=== PATIENT | male | born 1980 | race Two or more races ===

== ENCOUNTER 2018-11-19 18:36 | Emergency (ER) | payer BC ==
[2018-11-19 19:04] LABS: ABS Lymphocytes 0.5 10^3/ul (1.0-4.8); ABS Monocytes 0.5 10^3/ul (0-0.8); ABS Neutrophils 10.9 10^3/ul (1.5-7.7); Hematocrit 51 % (42-52); Hemoglobin 17.1 g/dL (14.0-18.0); Lymphocyte % 4.4 %; Mean Corpuscular HGB Conc 34 g/dL (31-36); Mean Corpuscular Hemoglobin 31 pg (27-31); Mean Corpuscular Volume 91 fL (80-94); Mean Platelet Volume 9.4 fL (7.4-10.4); Nucleated Red Blood Cells % 0.1; Platelet Count 203 10^3/uL (150-450); Red Cell Distribution Width 13 % (10.5-15)
[2018-11-19 19:13] LABS: Activated Partial Thrombo Time 34.8 seconds (26.0-38.0); INR 1.06 (0.82-1.09)
--- NOTE | 2018-11-19 19:16 | ED ---
Complex/Multi-Sys Presentation - HPI Summary HPI Summary: This patient is a 38 year old M [place] [facility] [place] to [place] new onset of A-fib found on the EKG taken at prior to arrival. Patient originally went to due to nasal drip and upper abdominal pain. Pain rated 3/10 in severity. He report current mild SOB. Patient denies chest pain and palpitations. Denies cardiac history. Gio FMHx of cardiac events. PMHx of severe asthma, appendectomy, and hernia repairs. - History Of Current Complaint Chief Complaint: EDDysrhythmPalp Time Seen by Provider: 11/19/18 18:51 Hx Obtained From: Patient Onset/Duration: Lasting Hours Location: Pain At: - upper abdomen Associated Signs And Symptoms: Positive: SOB. Negative: Chest Pain, Palpitations - Allergies/Home Medications Allergies/Adverse Reactions: Allergies Allergy/AdvReac Type Severity Reaction Status Date / Time No Known Allergies Allergy Verified 11/19/18 22:06 Home Medications: Home Medications Simethicone [Gas-X Extra Strength] 125 mg PO TID PRN 11/19/18 [History Confirmed 11/19/18] PMH/Surg Hx/FS Hx/Imm Hx Cardiovascular History: Denies: Hx Atrial Fibrillation Respiratory History: Reports: Hx Asthma - Surgical History Surgery Procedure, Year, and Place: appendectomy, hernia repair Infectious Disease History: No Infectious Disease History: Denies: Traveled Outside the [place] in Last 30 Days - Family History Known Family History: Negative: Cardiac Disease - Social History Alcohol Use: Occasionally Hx Substance Use: No Substance Use Type: Reports: None Hx Tobacco Use: No Smoking Status (MU): Never Smoked Tobacco Review of Systems Positive: Nasal Discharge Negative: Palpitations, Chest Pain Positive: Shortness Of Breath Positive: Abdominal Pain All Other Systems Reviewed And Are Negative: Yes Physical Exam - Summary Physical Exam Summary: GENERAL: Patient is a well-developed and nourished M who is lying comfortable in the stretcher. Patient is not in any acute respiratory distress. HEAD AND FACE: Normocephalic EYES: PERRLA, EOMI x 2. EARS: Hearing grossly intact. MOUTH: Oropharynx within normal limits. NECK: Supple, trachea is midline, no adenopathy, no JVD, no carotid bruit. CHEST: Symmetric, no tenderness at palpation LUNGS: Clear to auscultation bilaterally. No wheezing or crackles. CVS: Irregularly irregular mildly tachycardic, S1 and S2 present, no murmurs or gallops appreciated. ABDOMEN: Soft, Tender to palpation in upper abdomen. Bowel sounds are normal. No abnormal abdominal pulsations. EXTREMITIES: Full ROM in all major joints, no edema, no cyanosis or clubbing. NEURO: Alert and oriented x 3. No acute neurological deficits. Speech is normal and follows commands. SKIN: Dry and warm Triage Information Reviewed: Yes Vital Signs On Initial Exam: Initial Vitals Temp Pulse Resp BP Pulse Ox 97.8 F 101 18 141/106 97 11/19/18 18:39 11/19/18 18:39 11/19/18 18:39 11/19/18 18:39 11/19/18 18:39 Vital Signs Reviewed: Yes Diagnostics - Vital Signs Vital Signs Temp Pulse Resp BP Pulse Ox 11/19/18 18:39 97.8 F 101 18 141/106 97 - Laboratory Lab Results: Lab Results 11/19/18 Range/Units 18:57 WBC 12.0 H (3.5-10.8) 10^3/uL RBC 5.60 H (4.18-5.48) 10^6 /uL Hgb 17.1 (14.0-18.0) g/dL Hct 51 (42-52) % MCV 91 (80-94) fL MCH 31 (27-31) pg MCHC 34 (31-36) g/dL RDW 13 (10.5-15) % Plt Count 203 (150-450) 10^3/uL MPV 9.4 (7.4-10.4) fL Neut % (Auto) 91.1 % Lymph % (Auto) 4.4 % [place] % (Auto) 4.2 % Eos % (Auto) 0.0 % Baso % (Auto) 0.3 % Absolute Neuts (auto) 10.9 H (1.5-7.7) 10^3/ul Absolute Lymphs (auto) 0.5 L (1.0-4.8) 10^3/ul Absolute Monos (auto) 0.5 (0-0.8) 10^3/ul Absolute Eos (auto) 0.0 (0-0.6) 10^3/ul Absolute Basos (auto) 0.0 (0-0.2) 10^3/ul Absolute Nucleated RBC 0.0 10^3/ul Nucleated RBC % 0.1 Result Diagrams: 11/19/18 18:57 11/19/18 18:57 Lab Statement: Any lab studies that have been ordered have been reviewed, and results considered in the medical decision making process. - EKG 1917 Cardiac Rate: NL - 97 BPM EKG Rhythm: Sinus Rhythm ST Segment: Normal EKG Comparison: Other - No a-fib seen Complex Multi-Symp Course/Dx Course Of Treatment: 38 year old M presenting to [facility] from due to a new onset of A-fib found on the EKG taken at prior to arrival. Patient originally went to due to nasal drip and upper abdominal pain. EKG reveals NSR at 97 BPM, no a-fib appreciated. Patient is given IV fluids. Bloodwork and UA obtained. Reveals lipase 4568, WBC 12, D-dimer 346, AST 585, ALT 499. Patient will be signed out to Dr. Hernandez awaiting chest CTA and gallbladder US. - Diagnoses Provider Diagnoses: Abdominal pain Discharge - Sign-Out/Discharge Documenting (check all that apply): Sign-Out Patient Signing out patient TO: Swapnil Hernandez Patient Received Moderate/Deep Sedation with Procedure: No - Discharge Plan Condition: Good Disposition: HOME Patient Education Materials: A-fib (Atrial Fibrillation) (ED) Referrals: Tao Quintanilla MD [Medical Doctor] - Additional Instructions: It does look like you had a transient heart rhythm problem called atrial fibrillation, but your heart is now in a normal rhythm. We did not find any evidence of an underlying problem that caused this, but I would recommend seeing a paraprofessional education assistant to go over this in more detail and see if you need further testing such as ambulatory heart rhythm monitoring. - Billing Disposition and Condition Condition: GOOD Disposition: Home - Attestation Statements Document Initiated by Scribe: Yes Documenting Scribe: Hanane Macdonald Provider For Whom Alonso is Documenting (Include Credential): Jevon Hayes MD Scribe Attestation: Hanane Balbuena, scribed for Jevon Hayes MD on 11/22/18 at 1246. Scribe Documentation Reviewed: Yes Provider Attestation: The documentation as recorded by the scribe, Hanane Roetzer accurately reflects the service I personally performed and the decisions made by me, Jevon Hayes MD Status of Scribe Document: Viewed
[2018-11-19 19:23] LABS: Albumin 4.9 g/dL (3.2-5.2); Albumin/Globulin Ratio 1.8 (1-3); BUN/Creatinine Ratio 21.2 (8-20); Calcium 9.9 mg/dL (8.6-10.3); EGFR African American 97.8 (>60); EGFR Non-African American 80.8 (>60); Globulin 2.8 g/dL (2-4); Magnesium 2.1 mg/dL (1.9-2.7); Potassium 4.2 mmol/L (3.5-5.0); Total Bilirubin 1.4 mg/dL (0.2-1.0); Total Protein 7.7 g/dL (6.4-8.9)
[2018-11-19] MEDS ORDERED: NS 0.9% 1000 ML** 1,000 ML IV ONE (19:25)
[2018-11-19 19:55] LABS: Urine Appearance Clear; Urine Bilirubin Negative (Negative); Urine Blood Negative (Negative); Urine Color Amber; Urine Glucose Negative (Negative); Urine Ketones Negative (Negative); Urine Nitrite Negative (Negative); Urine Protein Negative (Negative); Urine Specific Gravity 1.021 (1.010-1.030); Urine Urobilinogen Negative (Negative)
[2018-11-19 19:56] LABS: TSH (Thyroid Stimulating Horm) 0.89 mcIU/mL (0.34-5.60)
[2018-11-19] MEDS ORDERED: Iohexol 350* (CONTRAST) 500 ML MDV IV ONE (21:35)
--- NOTE | 2018-11-19 23:25 | ED ---
Progress - Progress Note Progress Note: This patient is a sign-out from Dr. Hayes to Dr. Hernandez at 1999 on 11/19/18 at shift change pending chest CTA and US gallbladder and disposition. Course/Dx - Course Course Of Treatment: This patient is a sign-out from Dr. Hayes to Dr. Hernandez at 1999 on 11/19/18 at shift change pending chest/A/P CTA and US gallbladder and disposition. Chest CT revealed: Essentially negative CT chest. No central pulmonary embolism is identified. A/P CT revealed: 1. 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 2. Otherwise negative CT abdomen/pelvis. No aortic aneurysm or dissection. Dr. Hernandez has reviewed this radiology report. Gallbladder US revealed: 1. Cholelithiasis with slight gallbladder wall thickening measuring 4 mm but a negative sono Shah's sign. 2. Otherwise grossly negative gallbladder sonogram. The CBD is not seen. Dr. Hernandez has reviewed this radiology report. Patient will be discharged home with dx of paroxysmal atrial fibrillation and abdominal pain. Patient understands and agrees with this plan. - Diagnoses Provider Diagnoses: Abdominal pain Discharge - Sign-Out/Discharge Documenting (check all that apply): Patient Departure Patient Received Moderate/Deep Sedation with Procedure: No - Discharge Plan Condition: Good Disposition: HOME Patient Education Materials: A-fib (Atrial Fibrillation) (ED) Referrals: Tao Quintanilla MD [Medical Doctor] - Additional Instructions: It does look like you had a transient heart rhythm problem called atrial fibrillation, but your heart is now in a normal rhythm. We did not find any evidence of an underlying problem that caused this, but I would recommend seeing a food service agent to go over this in more detail and see if you need further testing such as ambulatory heart rhythm monitoring. - Billing Disposition and Condition Condition: GOOD Disposition: Home - Attestation Statements Document Initiated by Scribe: Yes Documenting Scribe: Sanju Delaney Provider For Whom Alonso is Documenting (Include Credential): Swapnil Hernandez MD Scribbenji Attestation: Sanju Balbuena, scribed for Swapnil Hernandez MD on 11/21/18 at 0221. Scribe Documentation Reviewed: Yes Provider Attestation: The documentation as recorded by the Sanju mckeon accurately reflects the service I personally performed and the decisions made by me, Swapnil Hernandez MD Status of Scribe Document: Viewed
[2018-11-19 23:57] VITALS: BP 134/98
[2018-11-22 14:23] LABS: HIV 4th Generation Negative (Negative)
== END 2018-11-19 23:56 | disposition home or self-care (01) ==
LOC: ED 18:36
DX: R10.9 Unspecified abdominal pain (principal); K80.20 Calculus of gallbladder without cholecystitis without obstruction; R06.02 Shortness of breath; J45.909 Unspecified asthma, uncomplicated
CPT/HCPCS: 36415; 71275; 74177; 76705; 80053; 81003; 83605; 83690; 83735; 83880; 84443; 84484; 85025; 85379; 85610; 85730; 86703; 87040; 87389; 93005; 96360; 99284; Q9967